=== PATIENT | female | born 1945 | race Caucasian/White ===

== ENCOUNTER 2018-02-22 18:12 | Inpatient (IN) | payer MEDICARE ==
[2018-02-22] MEDS ORDERED: LORazepam 2 MG/ML INJ IV STA (18:35)
[2018-02-22] MEDS ORDERED: RX INFO: IV CONTRAST WAS GIVEN 1 EACH MISC MISCELLANE PRN (18:43)
--- NOTE | 2018-02-22 18:47 | ED ---
General Adult HPI - General Chief complaint: Seizure Stated complaint: seizure Time Seen by Provider: 02/22/18 18:18 Source: patient, family, RN notes reviewed Mode of arrival: EMS Limitations: no limitations - History of Present Illness Initial comments: Patient is a pleasant 73-year-old female presenting to the emergency department following witnessed seizure. Patient has no history of seizures. Patient did feel somewhat shaky throughout the day. Patient was at a graduation republican. When she left patient did have generalized tonic-clonic activity lasting up to 1 -1/2 minutes. This was witnessed by her who is a physician university administrative assistant, retired. Patient was postictal and confused. Patient feels only slightly confused at this time and is near normal. No history of previous seizures. No chest pain. No palpitations. No dyspnea. - Related Data Allergies Allergy/AdvReac Type Severity Reaction Status Date / Time No Known Allergies Allergy Verified 02/22/18 18:56 Review of Systems ROS Statement: Those systems with pertinent positive or pertinent negative responses have been documented in the HPI. ROS Other: All systems not noted in ROS Statement are negative. Constitutional: Denies: fever Eyes: Denies: eye pain ENT: Denies: ear pain Respiratory: Denies: cough Cardiovascular: Denies: chest pain, palpitations Endocrine: Denies: fatigue Gastrointestinal: Denies: abdominal pain Genitourinary: Denies: dysuria Skin: Denies: rash Neurological: Denies: headache, weakness Past Medical History Past Medical History: Hypertension History of Any Multi-Drug Resistant Organisms: None Reported Past Surgical History: Back Surgery, Hernia Repair, Hysterectomy Past Psychological History: Anxiety Smoking Status: Former smoker Past Alcohol Use History: None Reported Past Drug Use History: None Reported General Exam Limitations: no limitations General appearance: alert, in no apparent distress Head exam: Present: atraumatic, normocephalic Eye exam: Present: normal appearance, PERRL, EOMI. Absent: nystagmus ENT exam: Present: normal oropharynx Neck exam: Present: normal inspection Respiratory exam: Present: normal lung sounds bilaterally Cardiovascular Exam: Present: regular rate, normal rhythm Expanded Peripheral pulses: 2+: Radial (R), Radial (L), Posterior Tibialis (R), Posterior Tibialis (L) GI/Abdominal exam: Present: soft. Absent: tenderness Extremities exam: Present: normal inspection. Absent: pedal edema, calf tenderness Neurological exam: Present: alert, oriented X3, CN II-XII intact. Absent: motor sensory deficit Expanded Neurological exam: Present: protecting the airway Patient oriented to: Present: person, place, time Speech: Present: fluid speech Cranial nerves: EOM's Intact: Normal, Facial Sensation: Normal Sensory exam: Upper Extremity Light Touch: Normal, Lower Extremity Light Touch: Normal Motor strength exam: RUE: 5, LUE: 5, RLE: 5, LLE: 5 Eye Response: (4) open spontaneously Motor Response: (6) obeys commands Verbal Response: (5) oriented Psychiatric exam: Present: normal affect, normal mood Skin exam: Present: normal color Course Vital Signs 02/22/18 02/22/18 18:20 19:52 Temperature 98.3 F Pulse Rate 100 91 Respiratory 18 16 Rate Blood Pressure 147/80 119/79 O2 Sat by Pulse 98 98 Oximetry EKG Findings - EKG Comments: EKG Findings:: Sinus rhythm and 97. SC 154. QRS 82. QT 350. QTC 444. Normal axis. Q wave in lead V2. There is some ST depression inferiorly. Medical Decision Making - Medical Decision Making Patient reevaluated and resting comfortably in bed. states patient is acting normal at this time. Patient and updated on results and plan. Patient will be admitted for neurology and cardiology evaluation. In addition there will be further cardiac testing. Case was discussed in detail with Dr. pritchard, who will admit for hospital call. - Lab Data Result diagrams: 02/22/18 18:30 02/22/18 18:30 Lab Results 02/22/18 02/22/18 02/22/18 Range/Units 18:30 18:30 18:30 WBC 5.0 (3.8-10.6) k/uL RBC 4.52 (3.80-5.40) m/uL Hgb 12.7 (11.4-16.0) gm/dL Hct 38.1 (34.0-46.0) % MCV 84.3 (80.0-100.0) fL MCH 28.0 (25.0-35.0) pg MCHC 33.3 (31.0-37.0) g/dL RDW 13.3 (11.5-15.5) % Plt Count 249 (150-450) k/uL Neutrophils % 61 % Lymphocytes % 28 % Monocytes % 6 % Eosinophils % 2 % Basophils % 1 % Neutrophils # 3.1 (1.3-7.7) k/uL Lymphocytes # 1.4 (1.0-4.8) k/uL Monocytes # 0.3 (0-1.0) k/uL Eosinophils # 0.1 (0-0.7) k/uL Basophils # 0.0 (0-0.2) k/uL PT (9.0-12.0) sec INR (<1.2) APTT (22.0-30.0) sec Sodium 132 L (137-145) mmol/L Potassium 3.5 (3.5-5.1) mmol/L Chloride 96 L (98-107) mmol/L Carbon Dioxide 22 (22-30) mmol/L Anion Gap 14 mmol/L BUN 6 L (7-17) mg/dL Creatinine 0.57 (0.52-1.04) mg/dL Est GFR (CKD-EPI)AfAm >90 (>60 ml/min/1.73 sqM) Est GFR (CKD-EPI)NonAf >90 (>60 ml/min/1.73 sqM) Glucose 135 H (74-99) mg/dL Calcium 8.9 (8.4-10.2) mg/dL Total Bilirubin 0.7 (0.2-1.3) mg/dL AST 22 (14-36) U/L ALT 22 (9-52) U/L Alkaline Phosphatase 135 H (38-126) U/L Total Creatine Kinase 65 (30-135) U/L CK-MB (CK-2) 1.9 (0.0-2.4) ng/mL CK-MB (CK-2) Rel Index 2.9 Troponin I 0.042 H* (0.000-0.034) ng/mL Total Protein 6.4 (6.3-8.2) g/dL Albumin 4.2 (3.5-5.0) g/dL 02/22/18 Range/Units 18:30 WBC (3.8-10.6) k/uL RBC (3.80-5.40) m/uL Hgb (11.4-16.0) gm/dL Hct (34.0-46.0) % MCV (80.0-100.0) fL MCH (25.0-35.0) pg MCHC (31.0-37.0) g/dL RDW (11.5-15.5) % Plt Count (150-450) k/uL Neutrophils % % Lymphocytes % % Monocytes % % Eosinophils % % Basophils % % Neutrophils # (1.3-7.7) k/uL Lymphocytes # (1.0-4.8) k/uL Monocytes # (0-1.0) k/uL Eosinophils # (0-0.7) k/uL Basophils # (0-0.2) k/uL PT 9.6 (9.0-12.0) sec INR 1.0 (<1.2) APTT 22.9 (22.0-30.0) sec Sodium (137-145) mmol/L Potassium (3.5-5.1) mmol/L Chloride (98-107) mmol/L Carbon Dioxide (22-30) mmol/L Anion Gap mmol/L BUN (7-17) mg/dL Creatinine (0.52-1.04) mg/dL Est GFR (CKD-EPI)AfAm (>60 ml/min/1.73 sqM) Est GFR (CKD-EPI)NonAf (>60 ml/min/1.73 sqM) Glucose (74-99) mg/dL Calcium (8.4-10.2) mg/dL Total Bilirubin (0.2-1.3) mg/dL AST (14-36) U/L ALT (9-52) U/L Alkaline Phosphatase (38-126) U/L Total Creatine Kinase (30-135) U/L CK-MB (CK-2) (0.0-2.4) ng/mL CK-MB (CK-2) Rel Index Troponin I (0.000-0.034) ng/mL Total Protein (6.3-8.2) g/dL Albumin (3.5-5.0) g/dL - Radiology Data Radiology results: report reviewed (Computed tomography scan of the brain and CTA of the brain reveals no acute process), image reviewed (Chest x-ray shows no acute process) Disposition Clinical Impression: New onset seizure Disposition: ADMITTED IP TO THIS [facility] Referrals: Nonstaff,Physician [Primary Care Provider] - 1-2 days Decision Time: 20:48
[2018-02-22 18:58] LABS: Basophils % (A) 1 %; Eosinophils # (A) 0.1 k/uL (0-0.7); Eosinophils % (A) 2 %; HCT 38.1 % (34.0-46.0); HGB 12.7 gm/dL (11.4-16.0); Lymphocytes # (A) 1.4 k/uL (1.0-4.8); Lymphocytes % (A) 28 %; MCHC 33.3 g/dL (31.0-37.0); MCV 84.3 fL (80.0-100.0); Mean Platelet Volume 7.4; Monocytes # (A) 0.3 k/uL (0-1.0); Monocytes % (A) 6 %; Neutrophils # (A) 3.1 k/uL (1.3-7.7); Neutrophils % (A) 61 %; Platelet Count 249 k/uL (150-450); RBC 4.52 m/uL (3.80-5.40); RDW 13.3 % (11.5-15.5)
[2018-02-22 19:11] LABS: ALT 22 U/L (9-52); AST 22 U/L (14-36); Albumin 4.2 g/dL (3.5-5.0); Alkaline Phosphatase 135 U/L (38-126); Anion Gap 14 mmol/L; Blood Urea Nitrogen 6 mg/dL (7-17); Calcium 8.9 mg/dL (8.4-10.2); Carbon Dioxide 22 mmol/L (22-30); Chloride 96 mmol/L (98-107); Glucose 135 mg/dL (74-99); Potassium 3.5 mmol/L (3.5-5.1); Sodium 132 mmol/L (137-145); Total Bilirubin 0.7 mg/dL (0.2-1.3); Total Protein 6.4 g/dL (6.3-8.2)
[2018-02-22 19:20] LABS: Partial Thromboplastin Time 22.9 sec (22.0-30.0); Prothrombin Time 9.6 sec (9.0-12.0)
[2018-02-22 19:23] LABS: Creatine Kinase MB 1.9 ng/mL (0.0-2.4)
[2018-02-22 19:25] LABS: Troponin I 0.042 ng/mL (0.000-0.034)
--- NOTE | 2018-02-22 19:58 | XR ---
EXAMINATION TYPE: XR chest 2V DATE OF EXAM: 02/22/2018 COMPARISON: NONE HISTORY: Seizure, asthma TECHNIQUE: Frontal and lateral views of the chest are obtained. FINDINGS: There is no focal air space opacity, pleural effusion, or pneumothorax seen. The cardiac silhouette size is within normal limits. Minimal strand-like basilar densities are present most typic al of subsegmental atelectasis. There are overlying cardiac leads. There may be spinal curvature. Pr ominent lung volume may be indicative of underlying COPD. The aorta is dense. The osseous structures are intact. IMPRESSION: Probable basilar atelectasis or scarring.
--- NOTE | 2018-02-22 20:18 | CT ---
EXAMINATION TYPE: CT brain wo con DATE OF EXAM: 02/22/2018 COMPARISON: NONE HISTORY: New onset seizure. CT DLP: 1125.81 mGycm Automated exposure control for dose reduction was used. Helical imaging through the brain FINDINGS: There is no hemorrhage or hydrocephalus. Cortical atrophy is present. Periventricular white matter sh ows low attenuation. Calvarium is intact. Paranasal sinuses and mastoid air cells as visualized are r emarkable for an air-fluid level within the sphenoid sinus on the left . IMPRESSION: NO ACUTE BRAIN ABNORMALITY. Consider sphenoid sinusitis.
--- NOTE | 2018-02-22 20:35 | CT ---
CT angiogram of the head history: New onset seizure Helical acquisition obtained through the brain during dynamic administration 100 cc Isovue intravenou sly. Three-dimensional reconstructions performed on an alternate workstation. Correlation to CT brain same date. DLP 1166.17 mGycentimeters, automatic exposure control utilized for dose reduction The vertebrobasilar system is patent. Internal carotid arteries are patent. There is no evident aneur ysm or dissection, no evident embolus. IMPRESSION: No significant abnormality evident within the [place].
[2018-02-22] MEDS ORDERED: NITROGLYCERIN SL TABS 0.4 MG TAB SUBLINGUAL PRN (20:49)
[2018-02-22] MEDS ORDERED: ASPIRIN 81 MG PO STA (20:49)
[2018-02-22] MEDS ORDERED: NALOXONE 0.4 MG/ML 1 ML VIAL IV PRN (20:49)
[2018-02-22] MEDS ORDERED: LORazepam 2 MG/ML INJ IV PRN (20:49)
[2018-02-22] MEDS: SODIUM CHLORIDE 0.9% 1,000 ML IV SCH (21:07)
[2018-02-22 21:42] LABS: Troponin I 1.65 ng/mL (0.000-0.034)
[2018-02-22 22:07] LABS: Glucose,Whole Blood 100 mg/dL (75-99)
[2018-02-22 22:35] VITALS: BMI 23.3
[2018-02-22] MEDS ORDERED: Potassium Replacement Protocol 1 EACH MISC MISCELLANE PRN (23:15)
[2018-02-22] MEDS ORDERED: Magnesium Replacement Protocol 1 EACH MISC MISCELLANE PRN (23:16)
[2018-02-23] MEDS: POTASSIUM CHLORIDE 10 MEQ in WATER FOR INJECTION 1 100ML.BAG IVPB SCH ×2 (00:04→01:35)
[2018-02-23] MEDS: ZOLPIDEM 10 MG TAB PO PRN ×2 (01:36→23:09)
[2018-02-23] MEDS: MAGNESIUM SULFATE-D5W PMX 1 GM in DEXTROSE/WATER 1 100ML.BAG IVPB SCH ×2 (02:30→03:01)
[2018-02-23 03:49] LABS: Anion Gap 10 mmol/L; Blood Urea Nitrogen 7 mg/dL (7-17); Calcium 9.2 mg/dL (8.4-10.2); Carbon Dioxide 25 mmol/L (22-30); Chloride 99 mmol/L (98-107); Cholesterol 203 mg/dL (<200); Glucose 100 mg/dL (74-99); HDL Cholesterol 65 mg/dL (40-60); LDL Cholesterol,Calculated 126 mg/dL (0-99); Magnesium 1.9 mg/dL (1.6-2.3); Potassium 4.4 mmol/L (3.5-5.1); Sodium 134 mmol/L (137-145); Triglycerides 62 mg/dL (<150)
[2018-02-23 04:24] LABS: Creatine Kinase MB 6.5 ng/mL (0.0-2.4); Troponin I 2.16 ng/mL (0.000-0.034)
--- NOTE | 2018-02-23 08:14 | P.CRDCN ---
History of Present Illness Consult date: 02/23/18 History of present illness: This is a 73-year-old female with history of hypertensive coronary vascular disease and mild hypercholesterolemia, apparently was at a republican yesterday. She was brought to the hospital after a witnessed seizure. EKG showed mild ST- T abnormalities in inferolateral leads. Her cardiac enzyme studies showed elevation of the troponin suggestive of non-STEMI. Patient never had any chest pain. Denies any shortness of breath, dizziness or syncope. She claimed that she had a cardiac catheterization in the past and was found to have normal coronary arteries. She also had a surgery for had hernia. She had some back surgery last year. She seemed to be comfortable at the time of my examination. No complaints of chest pain. Her blood pressures running low in the 100s. I' m going to start her on small dose of beta jarad. Will continue with aspirin. We'll also put her on lipid-lowering agent. We'll wait for the neurology input. If it is okay with them. We'll start her on IV heparin. An echocardiogram will be done. Most probably she will need cardiac catheterization to rule out underlying ischemic heart disease which will be planned for the next 24 hours. Review of Systems REVIEW OF SYSTEMS: CONSTITUTIONAL:. Patient is doing well. No complaints of fever or chills EYES: Denies diplopia, blurring of vision EARS, NOSE, MOUTH, THROAT: Denies headaches, denies sore throat. CARDIOVASCULAR: Denies chest pain, denies shortness of breath, denies palpitations RESPIRATORY: Denies shortness of breath, denies cough. GASTROINTESTINAL: Denies change in appetite, denies abdominal pain, denies diarrhea GENITOURINARY: Denies hematuria, denies infections. MUSKULOSKELETAL: Denies pain, denies swelling. Denies any cramps or claudication INTEGUMENTARY: Denies rash, denies eczema. NEUROLOGICAL: As per HPI PSYCHIATRIC: Denies anxiety, denies depression. HEMATOLOGIC/LYMPHATIC: Denies any bleeding, denies enlarged lymph nodes. Past Medical History Past Medical History: Hypertension History of Any Multi-Drug Resistant Organisms: None Reported Past Surgical History: Back Surgery, Hernia Repair, Hysterectomy Past Psychological History: Anxiety Smoking Status: Never smoker Past Alcohol Use History: None Reported Past Drug Use History: None Reported Medications and Allergies Allergies Allergy/AdvReac Type Severity Reaction Status Date / Time No Known Allergies Allergy Verified 02/22/18 18:56 Physical Exam Vitals: Vital Signs Temp Pulse Pulse Resp BP BP Pulse Ox 02/23/18 04:00 98.2 F 69 76 14 102/62 98 02/23/18 02:00 83 109/74 97 02/23/18 00:00 74 76 16 85/53 96 02/22/18 22:00 88 02/22/18 21:54 101 H 02/22/18 21:32 97.9 F 85 16 110/70 98 02/22/18 21:28 98 F 82 18 116/74 97 02/22/18 19:52 91 16 119/79 98 02/22/18 18:20 98.3 F 100 18 147/80 98 Intake and Output 02/22/18 02/23/18 02/23/18 22:59 06:59 14:59 Output Total 125 Balance -125 Output: Urine 125 Other: Voiding Method Bedside Commode # Voids 1 Weight 56 kg 56.2 kg GENERAL EXAM: Patient is alert and oriented and doesn't appear to be in any acute distress HEENT: Normocephalic. Normal reaction of pupils, equal size, normal range of extraocular motion. No erythema or exudates in the throat. NECK: No masses, no nuchal rigidity. CHEST: No chest wall deformity. LUNGS: Equal air entry with no crackles or wheeze. HEART: S1 and S2 normal with no audible mumurs or gallops. Regular rhythm, femorals equal on both sides.. ABDOMEN: No hepatosplenomegaly, normal bowel sounds, no guarding or rigidity. SKIN: No rashes CENTRAL NERVOUS SYSTEM: No focal deficits. EXTREMITIES: No cyanosis, clubbing or edema. Results 02/22/18 18:30 02/23/18 03:07 Cardiac Enzymes 02/22/18 02/22/18 02/22/18 Range/Units 18:30 18:30 21:00 AST 22 (14-36) U/L CK-MB (CK-2) 1.9 6.0 H* (0.0-2.4) ng/mL Troponin I 0.042 H* 1.650 H* (0.000-0.034) ng/mL 02/23/18 Range/Units 03:07 AST (14-36) U/L CK-MB (CK-2) 6.5 H* (0.0-2.4) ng/mL Troponin I 2.160 H* (0.000-0.034) ng/mL Coagulation 02/22/18 Range/Units 18:30 PT 9.6 (9.0-12.0) sec APTT 22.9 (22.0-30.0) sec Lipids 02/23/18 Range/Units 03:07 Triglycerides 62 (<150) mg/dL Cholesterol 203 H (<200) mg/dL HDL Cholesterol 65 H (40-60) mg/dL CBC 02/22/18 Range/Units 18:30 WBC 5.0 (3.8-10.6) k/uL RBC 4.52 (3.80-5.40) m/uL Hgb 12.7 (11.4-16.0) gm/dL Hct 38.1 (34.0-46.0) % Plt Count 249 (150-450) k/uL Comprehensive Metabolic Panel 02/22/18 02/23/18 Range/Units 18:30 03:07 Sodium 132 L 134 L (137-145) mmol/L Potassium 3.5 4.4 (3.5-5.1) mmol/L Chloride 96 L 99 (98-107) mmol/L Carbon Dioxide 22 25 (22-30) mmol/L BUN 6 L 7 (7-17) mg/dL Creatinine 0.57 0.60 (0.52-1.04) mg/dL Glucose 135 H 100 H (74-99) mg/dL Calcium 8.9 9.2 (8.4-10.2) mg/dL AST 22 (14-36) U/L ALT 22 (9-52) U/L Alkaline Phosphatase 135 H (38-126) U/L Total Protein 6.4 (6.3-8.2) g/dL Albumin 4.2 (3.5-5.0) g/dL Current Medications Generic Name Dose Route Start Last Admin Trade Name Freq PRN Reason Stop Dose Admin Aspirin 325 mg 02/23/18 09:00 Aspirin PO DAILY YAMILKA Sodium Chloride 1,000 mls @ 20 mls/hr 02/22/18 21:00 02/22/18 21:07 Saline 0.9% IV 20 mls/hr .Q24H YAMILKA Administration Lorazepam 0.5 mg 02/22/18 20:49 Ativan IV Q6HR PRN Anxiety Metoprolol Tartrate 12.5 mg 02/23/18 09:00 Lopressor PO BID YMAILKA Miscellaneous Information 1 each 02/22/18 18:43 02/22/18 18:59 Rx Info: Iv Contrast Was Given MISCELLANE 02/24/18 18:44 1 each DAILY PRN Administration Per Protocol Miscellaneous Information 1 each 02/22/18 23:16 Magnesium Per Protocol MISCELLANE DAILY PRN Per Protocol Protocol Miscellaneous Information 1 each 02/22/18 23:15 Potassium Per Protocol MISCELLANE DAILY PRN Per Protocol Protocol Naloxone HCl 0.2 mg 02/22/18 20:49 Narcan IV Q2M PRN Opioid Reversal Nitroglycerin 0.4 mg 02/22/18 20:49 Nitrostat SUBLINGUAL Q5M PRN Chest Pain Zolpidem Tartrate 10 mg 02/23/18 01:05 02/23/18 01:36 Ambien PO 10 mg HS PRN Administration Insomnia Intake and Output 02/22/18 02/23/18 02/23/18 22:59 06:59 14:59 Output Total 125 Balance -125 Output: Urine 125 Other: Voiding Method Bedside Commode # Voids 1 Weight 56 kg 56.2 kg 02/22/18 18:30 02/23/18 03:07 EKG Interpretations (text) Sinus rhythm with a diffuse ST-T changes inferolateral leads Assessment and Plan (1) Non-STEMI (non-ST elevated myocardial infarction) Current Visit: Yes Status: Acute Code(s): I21.4 - NON-ST ELEVATION (NSTEMI) MYOCARDIAL INFARCTION SNOMED Code(s): 713012848 (2) New onset seizure Current Visit: Yes Status: Acute Code(s): R56.9 - UNSPECIFIED CONVULSIONS SNOMED Code(s): 88554493 (3) Hypertension Current Visit: Yes Status: Acute Code(s): I10 - ESSENTIAL (PRIMARY) HYPERTENSION SNOMED Code(s): 88545570 Plan: EKG changes and cardiac enzyme studies are suggestive of, non-STEMI. Patient is asymptomatic. We'll get an echocardiogram. We'll continue with aspirin, beta jarad and lipid-lowering agent and if approved by neurology heparin. We' ll consider cardiac catheterization tomorrow.
[2018-02-23] MEDS: METOPROLOL TARTRATE 12.5 MG TAB PO SCH ×2 (09:30→21:17)
[2018-02-23] MEDS: ASPIRIN 325 MG TAB PO SCH (09:30)
[2018-02-23] MEDS: ATORVASTATIN 80 MG TAB PO SCH (09:31)
[2018-02-23] MEDS ORDERED: HEPARIN SODIUM,PORCINE 5,000 UNIT/ML 1 ML VIAL IV PRN (11:54)
[2018-02-23] MEDS ORDERED: HEPARIN SODIUM,PORCINE 5,000 UNIT/ML 1 ML VIAL IV ONE (12:15)
[2018-02-23 13:35] LABS: Basophils # (A) 0.1 k/uL (0-0.2); Basophils % (A) 1 %; Eosinophils % (A) 1 %; HCT 36.9 % (34.0-46.0); HGB 12.2 gm/dL (11.4-16.0); Lymphocytes # (A) 0.9 k/uL (1.0-4.8); Lymphocytes % (A) 16 %; MCH 28.1 pg (25.0-35.0); MCHC 33.1 g/dL (31.0-37.0); MCV 84.8 fL (80.0-100.0); Mean Platelet Volume 7.7; Monocytes # (A) 0.4 k/uL (0-1.0); Monocytes % (A) 6 %; Neutrophils # (A) 4.3 k/uL (1.3-7.7); Neutrophils % (A) 75 %; Platelet Count 229 k/uL (150-450); RBC 4.35 m/uL (3.80-5.40); RDW 13.6 % (11.5-15.5); WBC 5.8 k/uL (3.8-10.6)
[2018-02-23 13:45] LABS: Prothrombin Time 9.7 sec (9.0-12.0)
[2018-02-23] MEDS ORDERED: traMADol 50 MG TAB PO PRN (14:17)
[2018-02-23] MEDS: HEPARIN SODIUM,PORCINE/D5W PMX 25,000 UNIT in DEXTROSE/WATER 1 500ML.BAG IV SCH (14:30)
[2018-02-23] MEDS: GABAPENTIN 400 MG CAP PO SCH ×2 (16:41→21:17)
--- NOTE | 2018-02-23 18:51 | P.CNNES ---
History of Present Illness Consult date: 02/23/18 Requesting physician: Zach Rajan Reason for Consult: New onset seizure History of Present Illness: Patient is a pleasant 73-year-old female who is being evaluated by the neurology service today on 02/23/2018 per the request of Dr. Rajan for new onset seizure. Patient denies having history of seizure. Patient states she was not feeling well for approximately 2 days and did not say anything. She stated she went to a family graduation and when she left her noted that she had what was described as a tonic-clonic seizure in the car. Patient states her turned the car around and went back to the graduation constitution party and called 911. Reportedly this seizure lasted approximately 1-1/2 minutes. Patient states she believes she bit her lip during the seizure. She denies any loss of bowel or bladder control. 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 Patient did describe a postictal state. Patient has had no return of seizures since admission. Patient reports she was taking Ultram for back pain relief. Ultram can lower seizure threshold. Labs on admission were sodium 132, BUN 6, glucose 135, and elevated troponin of 0.042. Cardiology has been consulted. Lipid panel is elevated cardiology is starting her on low dose statin agent. Cardiology also is starting patient on low-dose beta jarad and low-dose aspirin. At the time of my evaluation, patient's resting comfortably in bed and appears to be in no acute distress. Review of Systems REVIEW OF SYSTEMS: Otherwise unremarkable and noncontributory. Past Medical History Past Medical History: Hypertension History of Any Multi-Drug Resistant Organisms: None Reported Past Surgical History: Back Surgery, Hernia Repair, Hysterectomy Past Psychological History: Anxiety Smoking Status: Never smoker Past Alcohol Use History: None Reported Past Drug Use History: None Reported Medications and Allergies Home Medications Medication Instructions Recorded Confirmed Type Albuterol Sulfate [Proair Hfa] 1 - 2 puff INHALATION RT-Q6H PRN 02/23/18 History Gabapentin [Neurontin] 800 mg PO TID 02/23/18 02/23/18 History LORazepam [Ativan] 1 mg PO BID 02/23/18 02/23/18 History Losartan Potassium [Cozaar] 100 mg PO DAILY 02/23/18 02/23/18 History Zolpidem [Ambien] 10 mg PO HS PRN 02/23/18 02/23/18 History traMADol HCL [Ultram] 50 mg PO TID PRN 02/23/18 02/23/18 History Allergies Allergy/AdvReac Type Severity Reaction Status Date / Time No Known Allergies Allergy Verified 02/23/18 12:14 Physical Examination - Vital Signs Vital Signs: Vital Signs Temp Pulse Pulse Resp BP BP Pulse Ox 02/23/18 08:00 97.7 F 86 76 18 123/72 100 02/23/18 04:00 98.2 F 69 76 14 102/62 98 02/23/18 02:00 83 109/74 97 02/23/18 00:00 74 76 16 85/53 96 02/22/18 22:00 88 02/22/18 21:54 101 H 02/22/18 21:32 97.9 F 85 16 110/70 98 02/22/18 21:28 98 F 82 18 116/74 97 02/22/18 19:52 91 16 119/79 98 Intake and Output 02/23/18 02/23/18 02/23/18 06:59 14:59 22:59 Intake Total 400 Output Total 125 Balance -125 400 Intake: IV 160 Sodium Chloride 0.9% 1, 160 000 ml @ 20 mls/hr IV . Q24H [facility] Rx#:[id number] Oral 240 Output: Urine 125 Other: Voiding Method Bedside Commode Bedside Commode # Voids 1 1 # Bowel Movements 1 Weight 56.2 kg PHYSICAL EXAM: GENERAL APPEARANCE: Patient is a well-developed, female who appears to be in no acute distress. HEENT: Normocephalic, atraumatic, no facial asymmetry is seen. Neck is supple with no masses felt. CARDIOVASCULAR: Regular rate and rhythm. ABDOMEN: Nontender, nondistended. EXTREMITIES: Show no edema or clubbing. NEUROLOGICAL EXAM: Patient is awake, alert, and oriented 3. Speech and language are normal. Strength is full in all 4 extremities. Sensory exam to light touch is normal in all 4 extremities. No facial asymmetry is seen on cranial nerve testing. No tremors or seizure-like activity noted. Results - Laboratory Findings CBC and BMP: 02/23/18 13:15 02/23/18 03:07 Abnormal Lab Findings: Abnormal Labs 02/22/18 02/22/18 02/22/18 18:30 18:30 21:00 Lymphocytes # Sodium 132 L Chloride 96 L BUN 6 L Glucose 135 H POC Glucose (mg/dL) Alkaline Phosphatase 135 H Total Creatine Kinase CK-MB (CK-2) 6.0 H* Troponin I 0.042 H* 1.650 H* Cholesterol LDL Cholesterol, Calc HDL Cholesterol 02/22/18 02/23/18 02/23/18 22:05 03:07 03:07 Lymphocytes # Sodium 134 L Chloride BUN Glucose 100 H POC Glucose (mg/dL) 100 H Alkaline Phosphatase Total Creatine Kinase 175 H CK-MB (CK-2) 6.5 H* Troponin I 2.160 H* Cholesterol 203 H LDL Cholesterol, Calc 126 H HDL Cholesterol 65 H 02/23/18 13:15 Lymphocytes # 0.9 L Sodium Chloride BUN Glucose POC Glucose (mg/dL) Alkaline Phosphatase Total Creatine Kinase CK-MB (CK-2) Troponin I Cholesterol LDL Cholesterol, Calc HDL Cholesterol Assessment and Plan Plan: Impression: 1. New-onset seizure 2. Elevated troponin, non-STEMI 3. Hypertension 4. Anxiety 5. Lumbago Recommendation: Patient denies any history of seizure activity. Patient states this is the first seizure she has ever experienced. Seizure may be related to Ultram use which she was using for chronic back pain. Ultram can lower seizure threshold. I will discontinue the Ultram. Due to new onset seizure, I will order an MRI of the brain with and without contrast to evaluate for possible contributing etiology. I will order an EEG. At this point, I do not feel it necessary to start patient on antiepileptic medication. Continue neurological checks. Continue workup per cardiology. Ativan per seizure protocol. I will continue to follow with you. Further recommendations to follow. Thank you for allowing me to participate in the care of your patient. Feel free to call with any questions or concerns. I performed an examination of the patient and discussed the management with the LOAN COLLECTOR. I have reviewed the LOAN COLLECTOR notes and agree with the findings and plan of care.
--- NOTE | 2018-02-23 19:14 | HP ---
HISTORY AND PHYSICAL DATE OF ADMISSION: 02/23/18 DATE OF SERVICE: 02/23/18 PRESENTING COMPLAINT: Seizures. HISTORY OF PRESENTING COMPLAINT: A very pleasant 73-year-old patient follows with Dr. Dean chronic stable medical conditions include hypertension, anxiety, chronic low back pain. For the last couple days, patient has not been feeling well. The patient went over to her sister in laws with her , was feeling a bit shaky and jumpy. Next thing she remembers she was being told that her is taking her back to her house. is a physician food and nutrition services assistant. On the way home apparently the patient is having seizure-like activity. He brought her back to her sister's house. The patient was then describe to have a tonic- clonic seizure. The patient did bite her lips. The patient is brought to the ER. The patient did get Ativan in the ER. The patient initial troponin was 0.04, 0.042 and then it went up to 1.6 and 2.1. EKG showed some ST-segment depression in inferolateral leads. The patient is started on IV heparin. The patient's CT scan of the brain unremarkable. The patient denies any chest pain or shortness of breath. The patient is rather talkative and chatty during the interview. The patient denies use any new drugs or head injury. REVIEW OF SYSTEMS: Constitutional tired. HEENT none. Respiratory none. Cardiovascular none. Gastrointestinal none. Genitourinary: None. Musculoskeletal: Aches and pains in different joints including lower back. Dermatological, hematologic, lymphatic none. Psychiatry anxiety. Neurological does not sleep well. PAST MEDICAL HISTORY: Hypertension, anxiety, chronic constipation, 1 or 2 bowel movements a day, chronic low back pain. PAST SURGICAL HISTORY: Back surgery, hernia repair, hysterectomy. SOCIAL HISTORY: Does not smoke. Stopped drinking alcohol 30 years ago. . FAMILY HISTORY: Reviewed, noncontributory to presentation. HOME MEDICATIONS: 1. Ultram 50 mg p.o. t.i.d. p.r.n. 2. Ambien 10 mg q.h.s. p.r.n. 3. Cozaar 100 mg p.o. daily. 4. Ativan 1 mg p.o. b.i.d. 5. Neurontin 800 mg t.i.d. 6. ProAir 1-2 puffs q.6h p.r.n. ALLERGIES: None. PHYSICAL EXAMINATION: Temperature 97.7, pulse 96, respiration 18, blood pressure 123/72, pulse ox 100% on 2 L. GENERAL APPEARANCE: Thin build, sitting up, comfortable. EYES: Pupils are equal. Conjunctivae normal. HEENT: External appearance of nose and ears normal. Oral cavity normal. Neck JVD not raised. Mass not palpable. Respiratory effort normal. Lungs fair entry. Cardiovascular 1st and 2nd sounds normal. No edema. ABDOMEN: Soft, nontender. Liver and spleen not palpable. Lymphatics: No lymph nodes palpable in the neck and axilla. Psychiatry alert and oriented x3. Mood is slightly anxious-appearing. Neurological: Pupils equal. Cranial nerves grossly intact. Power and sensation grossly intact. MUSCULOSKELETAL: Evidence of osteoarthritis especially in the hands and knees. INVESTIGATIONS: White count 5, hemoglobin 12.7, potassium 3.5, BUN 6, creatinine 0.57, troponin 0.04, 1.6 and 2.1. LDL 126. EKG shows ST-segment depression in inferolateral leads. CT scan of the brain is negative. Head CT unremarkable. ASSESSMENT: 1. Acute non-Q-wave myocardial infarction with a rather unique presentation. 2. New onset generalized tonic-clonic epilepsy with no prior history of the same. 3. Chronic low back pain. 4. Essential hypertension. 5. Anxiety disorder, otherwise specified. 6. Chronic constipation as a baseline. 1-2 bowel movements a day. PLAN: Neurology and Cardiology was consulted. The patient is put on aspirin, IV heparin, Cozaar, Lopressor. Seizure precautions will be done. The patient will need a cardiac catheterization. We will also add Lipitor. Care was discussed with the patient. MMODL / IJN: [id number] /
[2018-02-23] MEDS: SODIUM CHLORIDE 0.9% 1,000 ML IV SCH (21:17)
[2018-02-23] MEDS: LORazepam 1 MG TAB PO SCH (21:17)
[2018-02-24] MEDS: LOSARTAN 50 MG TAB PO SCH (06:36)
[2018-02-24] MEDS: GABAPENTIN 400 MG CAP PO SCH ×3 (06:36→20:50)
[2018-02-24] MEDS: ATORVASTATIN 80 MG TAB PO SCH (06:36)
[2018-02-24] MEDS: METOPROLOL TARTRATE 12.5 MG TAB PO SCH ×2 (06:37→20:50)
[2018-02-24 06:38] LABS: Basophils # (A) 0.1 k/uL (0-0.2); Basophils % (A) 1 %; Eosinophils # (A) 0.2 k/uL (0-0.7); Eosinophils % (A) 4 %; HCT 38.7 % (34.0-46.0); HGB 12.7 gm/dL (11.4-16.0); Lymphocytes # (A) 1.9 k/uL (1.0-4.8); Lymphocytes % (A) 39 %; MCH 27.9 pg (25.0-35.0); MCHC 32.8 g/dL (31.0-37.0); MCV 85.1 fL (80.0-100.0); Mean Platelet Volume 7.6; Monocytes # (A) 0.4 k/uL (0-1.0); Monocytes % (A) 9 %; Neutrophils # (A) 2.2 k/uL (1.3-7.7); Neutrophils % (A) 45 %; Platelet Count 261 k/uL (150-450); RBC 4.54 m/uL (3.80-5.40); RDW 13.6 % (11.5-15.5); WBC 4.9 k/uL (3.8-10.6)
[2018-02-24] MEDS: ASPIRIN 325 MG TAB PO SCH (06:39)
[2018-02-24] MEDS: LORazepam 1 MG TAB PO SCH ×2 (09:09→20:50)
[2018-02-24] MEDS ORDERED: LIDOCAINE 2% INJ 20 MG/ML (20 ML MDV) ONE (09:18)
[2018-02-24] MEDS ORDERED: fentaNYL (PF) 50 MCG/ML 2 ML AMP ONE (09:28)
[2018-02-24] MEDS ORDERED: IV FLUID CONTINUATION 1,000 ML IV ONE (09:41)
[2018-02-24] MEDS ORDERED: MIDAZOLAM 2 MG/2 ML VIAL ONE (09:44)
[2018-02-24] MEDS ORDERED: fentaNYL (PF) 50 MCG/ML 2 ML AMP IVP ONE (09:48)
[2018-02-24] MEDS ORDERED: MIDAZOLAM 2 MG/2 ML VIAL IVP ONE (09:48)
[2018-02-24] MEDS ORDERED: LIDOCAINE 2% INJ 20 MG/ML SQ ONE (09:51)
[2018-02-24] MEDS ORDERED: IOPAMIDOL-370 125ML BTL INJ ONE (10:07)
[2018-02-24] MEDS ORDERED: RX INFO: IV CONTRAST WAS GIVEN 1 EACH MISC MISCELLANE PRN (10:15)
--- NOTE | 2018-02-24 10:25 | P.PCN ---
Date of Procedure: 02/24/18 Preoperative Diagnosis: Non-STEMI Postoperative Diagnosis: Apical ballooning syndrome Procedure(s) Performed: Left heart catheterization With the left ventriculography Description of Procedure: HISTORY: This is a 73-year-old female who was admitted to the hospital following a seizure episode which was witnessed. She was found to have abnormal troponin values consistent with a non-STEMI. Echo Cardigan showed hypokinesis of the mid and apical anterior wall, mid and apical septum and also apical lateral wall. She is advised to have a cardiac catheterization to rule out any underlying ischemic heart disease. CONSENT:I have discussed the risks, benefits and alternative therapies for the above-mentioned procedure and for both sedation/analgesia as well as necessary blood product administration, if indicated, as they pertain to this patient. The patient has indicated understanding and acceptance of the risks and procedures discussed. PROCEDURE: Patient was brought to the lab in a fasting state. Patient was given some IV sedation. The right groin is infiltrated with lidocaine and right femoral artery was entered using Seldinger technique. A 6-[place] catheter was left in place and selective coronary arteriography and left ventriculography was performed. Patient tolerated the procedure well. Femoral angiogram was performed and Angio-Seal was applied for hemostasis. No immediate complications were noted and patient was transferred to [facility] in a stable condition Conscious Sedation: Versed 0.5mg Fentanyl 25 g Duration 19minutes HEMODYNAMICS: The aortic pressure is about 100/60. Left ankle end-diastolic pressure is 16. There is a 5 mm gradient across the aortic valve. SELECTIVE CORONARY ARTERIOGRAPHY: LEFT MAIN: Normal length and patent THE LEFT ANTERIOR DESCENDING CORONARY ARTERY: This is a good caliber vessel and tortuous in its course, use ice to good-sized diagonal branch which is also tortuous. The LAD and its branches are free of occlusive disease. THE LEFT CIRCUMFLEX AND IS CORONARY ARTERY: This is also moderate to good caliber vessel, tortuous in schools. Gives rise to good- sized first OM branch. The circumflex and branches are free of occlusive disease THE RIGHT CORONARY ARTERY: This is a codominant vessel giving rise to PDA and PLV. This moderate to large in caliber. There is a mild plaque in the mid RCA. Otherwise free of any occlusive disease LEFT VENTRICULOGRAPHY: This revealed normal-sized cardiac silhouette with hypokinesis of the mid to apical anterior wall. 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 PLAN: Maximum medical therapy and risk factor modification PROGNOSIS: Fair
--- NOTE | 2018-02-24 13:49 | ECHOF ---
Referral Reason:elevated trops MEASUREMENTS -------- HEIGHT: 154.9 cm WEIGHT: 55.3 kg BP: IVSd: 1.3 cm (0.6 - 1.1) LVIDd: 3.3 cm (3.9 - 5.3) LVPWd: 1.3 cm (0.6 - 1.1) IVSs: 1.5 cm LVIDs: 2.5 cm LVPWs: 1.2 cm LAESV Index (A-L): 31.19 ml/m Ao Diam: 2.9 cm (2.0 - 3.7) AV Cusp: 1.5 cm (1.5 - 2.6) LA Diam: 3.6 cm (2.7 - 3.8) MV EXCURSION: 11.236 mm (> 18.000) MV EF SLOPE: 93 mm/s (70 - 150) EPSS: 0.4 cm MV E Michael: 0.67 m/s MV DecT: 203 ms MV A Michael: 0.59 m/s MV E/A Ratio: 1.15 RAP: 5.00 mmHg RVSP: 44.08 mmHg FINDINGS -------- Sinus rhythm. This was a technically adequate study. The left ventricular size is normal. There is mild concentric left ventricular hypertrophy. Overa ll left ventricular systolic function is mild-moderately impaired with, an EF between 40 - 45 %. An terseptal Hypokinesis Lateral hypokinesis Septal Hypokinesis [place] Hypokinesis. The right ventricle is normal in size. The left atrial size is normal. LA is midly dilated 29-33ml/m2. The right atrial size is normal. There is mild aortic valve sclerosis. There is no evidence of aortic regurgitation. Mild mitral annular calcification present. Mild mitral regurgitation is present. Mild tricuspid regurgitation present. There is mild pulmonary hypertension. The right ventricular systolic pressure, as measured by Doppler, is 44.08mmHg. There is no pulmonic regurgitation present. The aortic root size is normal. There is no pericardial effusion. CONCLUSIONS -------- 1. The left ventricular size is normal. 2. There is mild concentric left ventricular hypertrophy. 3. Overall left ventricular systolic function is mild-moderately impaired with, an EF between 40 - 45 %. 4. Anterseptal Hypokinesis 5. Lateral hypokinesis 6. Septal Hypokinesis 7. [place] Hypokinesis. 8. The right ventricle is normal in size. 9. The left atrial size is normal. 10. LA is midly dilated 29-33ml/m2. 11. The right atrial size is normal. 12. There is mild aortic valve sclerosis. 13. Mild mitral annular calcification present. 14. Mild mitral regurgitation is present. 15. Mild tricuspid regurgitation present. 16. There is mild pulmonary hypertension. 17. The right ventricular systolic pressure, as measured by Doppler, is 44.08mmHg. 18. There is no pulmonic regurgitation present. 19. The aortic root size is normal. 20. There is no pericardial effusion. CARPET JOURNEYMAN: Elodia Pino RDCS
[2018-02-24 15:00] VITALS: RESP 18
--- NOTE | 2018-02-24 16:02 | P.PN ---
Subjective Progress Note Date: 02/24/18 Patient is a pleasant 73-year-old female who is being followed by the neurology service for new onset seizure. Patient denies having history of seizure. Patient had a tonic-clonic seizure witnessed by her who is a retired PA. Patient was brought to [facility] for further evaluation. No further seizures reported since admission. Ultram has been discontinued due to possibility of lowering seizure threshold. Patient was noted to have elevated troponins and cardiology was consulted. Patient did undergo cardiac cath today in medical management is recommended. Patient had computed tomography scan of the brain which showed no acute intracranial process. Patient had an EEG done and results are pending. Patient is scheduled to have an MRI of the brain due to new onset seizure. At the time of my evaluation, patient is resting comfortably in bed and is just finishing with EEG. Patient does not appear to be in any acute distress. Objective - Vital Signs Vital signs: Vital Signs Temp 98.6 F 02/24/18 08:12 Pulse 73 02/24/18 14:30 Resp 18 02/24/18 14:30 BP 96/62 02/24/18 14:30 Pulse Ox 97 02/24/18 14:30 Intake & Output 02/23/18 02/24/18 02/24/18 18:59 06:59 18:59 Intake Total 480 461.971 924 Output Total 300 Balance 480 461.971 624 Weight 55.7 kg Intake: IV 240 688 0.9 NS @ 56mls/hr 448 Sodium Chloride 0.9% 1, 240 160 000 ml @ 20 mls/hr IV . Q24H YAMILKA Rx#:[id number] Intake, IV Titration 221.971 Amount Heparin Sodium,Porcine/ 221.971 D5w Pmx 25,000 unit In Dextrose/Water 1 500ml. bag @ 12 UNITS/KG/HR 13. 48 mls/hr IV .Q24H YAMILKA Rx #:[id number] Oral 240 240 236 Output: Urine 300 Other: Voiding Method Bedside Commode Bedside Commode Bedpan # Voids 1 0 0 # Bowel Movements 1 - Exam PHYSICAL EXAM: GENERAL APPEARANCE: Patient is a well-developed, female who appears to be in no acute distress. HEENT: Normocephalic, atraumatic, no facial asymmetry is seen. Neck is supple with no masses felt. CARDIOVASCULAR: Regular rate and rhythm. ABDOMEN: Nontender, nondistended. EXTREMITIES: Show no edema or clubbing. NEUROLOGICAL EXAM: Patient is awake, alert, and oriented 3. Speech and language are normal. Strength is full in all 4 extremities. Sensory exam is normal to light touch in all 4 extremities. No facial asymmetry is seen on cranial nerve testing. No tremors or seizure-like activity. - Labs CBC & Chem 7: 02/24/18 06:24 02/23/18 03:07 Labs: Abnormal Lab Results - Last 24 Hours (Table) 02/23/18 02/24/18 Range/Units 19:42 06:28 APTT 46.2 H 42.8 H (22.0-30.0) sec Assessment and Plan Plan: Impression: 1. New-onset seizure 2. Elevated troponin, non-STEMI 3. Hypertension 4. Anxiety 5. Lumbago Recommendation: Patient denies any history of seizure activity. Patient states this is the first seizure she has ever experienced. Seizure may be related to Ultram use which she was using for chronic back pain. Ultram can lower seizure threshold. I will discontinue the Ultram. Due to new onset seizure, I will order an MRI of the brain with and without contrast to evaluate for possible contributing etiology. EEG was done and results are pending. At this point, I do not feel it necessary to start patient on antiepileptic medication. Any further seizures we will revisit antiepileptic medication. Continue neurological checks. Ativan per seizure protocol. I will continue to follow with you. Further recommendations to follow. I performed an examination of the patient and discussed the management with the SAFETY SPEC. I have reviewed the SAFETY SPEC notes and agree with the findings and plan of care.
--- NOTE | 2018-02-24 16:51 | EEG ---
ELECTROENCEPHALOGRAM REPORT DATE OF SERVICE: 02/24/2018 REASON FOR TESTING: Seizure. CURRENT ANTIEPILEPTIC MEDICATIONS: Neurontin. DESCRIPTION OF THE PROCEDURE: This EEG was performed using a 21-channel digital electroencephalograph, following international 10-20 system. DESCRIPTION OF THE RECORDING: From the beginning of the tracing, and with the patient's eyes closed, the background rhythm was mostly consisting of 10 Hz alpha frequency in the posterior occipital leads. No obvious asymmetry is seen. Occasional lead and muscle artifacts are seen. Photic stimulation was performed with a minimal driving response seen. No pathological waves were elicited. Hyperventilation was not performed. The patient does reach stage II of sleep during the tracing and occasional sleep spindles are seen. No epileptiform discharges were seen. Her EKG lead showed a regular rate and rhythm. INTERPRETATION: This asleep and awake EEG can be considered within normal limits. There was no asymmetry seen. No epileptiform discharges were noticed. The absence of epileptiform discharges does not rule out the diagnosis of epilepsy; therefore clinical correlation is recommended. MMEMY / IJN: [id number] /
--- NOTE | 2018-02-24 17:18 | MR ---
EXAMINATION TYPE: MR brain wo/w con DATE OF EXAM: 02/24/2018 COMPARISON: NONE HISTORY: New onset seizure TECHNIQUE: Multiplanar, multisequence images of the brain and brainstem is performed without and with IV contras t, utilizing 5.5 mL intravenous Gadavist . FINDINGS: There is mild cerebral cortical atrophy. There is no mass effect nor midline shift. There i s no sign of intracranial hemorrhage. There are numerous foci of increased signal in the periventricu lar white matter on the T2 and FLAIR images. Total number is more than 25 and these measure up to 8 m m. There is also patchy increased signal similarly within the geo that measures 16 mm. Sella turcica is normal. Orbits appear symmetric. There is no evidence of cortical infarct. There is normal contrast enhancement of the venous sinuses. There is no pathologic enhancement. CONCLUSION: Numerous white matter lesions as above including also a moderately large area in the central geo. Th is probably relates to demyelinating disease. Chronic small vessel ischemia is possible. Cerebral atr ophy. No evidence of cortical infarct.
[2018-02-24] MEDS: HEPARIN SODIUM,PORCINE/D5W PMX 25,000 UNIT in DEXTROSE/WATER 1 500ML.BAG IV SCH (18:43)
[2018-02-24] MEDS: SODIUM CHLORIDE 0.9% 1,000 ML IV SCH ×2 (18:43→20:52)
--- NOTE | 2018-02-25 00:21 | PN ---
PROGRESS NOTE DATE OF SERVICE: 02/24/2018 PRESENT COMPLAINT: Seizures. INTERVAL HISTORY: This patient presented with new onset seizures and also had an acute [place]. Did have a cardiac cath today that showed normal coronaries noted on the full report. The patient is resting better after the procedure. at the bedside. No further episodes of seizures. REVIEW OF SYSTEMS: Done for constitutional, cardiovascular, GI, pulmonary; relevant findings as above. CURRENT MEDICATIONS: Reviewed. PHYSICAL EXAMINATION: Temperature afebrile, pulse 62, respiratory 18, blood pressure 104/61, pulse ox 95% on room air. GENERAL APPEARANCE: Lying in bed, comfortable, smiling. EYES: Pupils are equal. Conjunctivae normal. HEENT: External appearance of nose and ears normal. Oral cavity normal. NECK: JVD not raised. Mass not palpable. Respiratory effort normal. Lungs are clear. CARDIOVASCULAR: First and second sounds normal, no edema. ABDOMEN: Soft and nontender. Liver and spleen not palpable. PSYCHIATRY: Alert and oriented x3. Mood and affect is normal. INVESTIGATIONS: LDL 126. ASSESSMENT: 1. Acute non-Q-wave myocardial infarction with negative cardiac catheterization. 2. New onset generalized tonic-clonic epilepsy with no prior history of the same. 3. Chronic low back pain probably from osteoarthritis. 4. Essential hypertension. 5. Anxiety disorder, not otherwise specified. 6. Chronic constipation as a baseline, idiopathic. PLAN: Patient awaiting EEG and MRI. Care was discussed in detail with the patient and . Several questions were answered. Did tell them that Ultram does increase the risk of seizures and the patient had taken some extra pills that day because she had to go to a family get-together. Will follow with Neurology. MMODL / IJN: [id number] /
[2018-02-25] MEDS: ZOLPIDEM 10 MG TAB PO PRN (00:28)
[2018-02-25 06:44] LABS: Basophils # (A) 0.1 k/uL (0-0.2); Basophils % (A) 1 %; Eosinophils # (A) 0.1 k/uL (0-0.7); Eosinophils % (A) 2 %; HCT 34.5 % (34.0-46.0); HGB 11.3 gm/dL (11.4-16.0); Lymphocytes # (A) 1.7 k/uL (1.0-4.8); Lymphocytes % (A) 30 %; MCH 27.8 pg (25.0-35.0); MCHC 32.9 g/dL (31.0-37.0); MCV 84.6 fL (80.0-100.0); Mean Platelet Volume 7.8; Monocytes # (A) 0.4 k/uL (0-1.0); Monocytes % (A) 7 %; Neutrophils # (A) 3.2 k/uL (1.3-7.7); Neutrophils % (A) 57 %; Platelet Count 235 k/uL (150-450); RBC 4.08 m/uL (3.80-5.40); RDW 13.7 % (11.5-15.5); WBC 5.5 k/uL (3.8-10.6)
[2018-02-25 07:07] LABS: Anion Gap 9 mmol/L; Blood Urea Nitrogen 7 mg/dL (7-17); Calcium 8.8 mg/dL (8.4-10.2); Carbon Dioxide 24 mmol/L (22-30); Chloride 101 mmol/L (98-107); Glucose 87 mg/dL (74-99); Potassium 3.7 mmol/L (3.5-5.1); Sodium 134 mmol/L (137-145)
[2018-02-25 09:07] VITALS: BP 139/79; PULSE 88; TEMP 98.8
[2018-02-25] MEDS: GABAPENTIN 400 MG CAP PO SCH (09:07)
[2018-02-25] MEDS: ATORVASTATIN 80 MG TAB PO SCH (09:07)
[2018-02-25] MEDS: ASPIRIN 325 MG TAB PO SCH (09:07)
[2018-02-25] MEDS: METOPROLOL TARTRATE 12.5 MG TAB PO SCH (09:08)
[2018-02-25] MEDS: LOSARTAN 50 MG TAB PO SCH (09:08)
[2018-02-25] MEDS: LORazepam 1 MG TAB PO SCH (09:08)
[2018-02-25] MEDS ORDERED: SPIRONOLACTONE 25 MG TAB PO SCH (14:45)
--- NOTE | 2018-02-25 15:16 | P.PN ---
Subjective Progress Note Date: 02/25/18 This is a 73-year-old female with history of hypertensive coronary vascular disease and mild hypercholesterolemia, apparently was at a constitution party yesterday. She was brought to the hospital after a witnessed seizure. EKG showed mild ST- T abnormalities in inferolateral leads. Her cardiac enzyme studies showed elevation of the troponin suggestive of non-STEMI. Patient never had any chest pain. Denies any shortness of breath, dizziness or syncope. She claimed that she had a cardiac catheterization in the past and was found to have normal coronary arteries. She also had a surgery for had hernia. She had some back surgery last year. She seemed to be comfortable at the time of my examination. No complaints of chest pain. Her blood pressures running low in the 100s. I' m going to start her on small dose of beta jarad. Will continue with aspirin. We'll also put her on lipid-lowering agent. We'll wait for the neurology input. If it is okay with them. We'll start her on IV heparin. An echocardiogram will be done. Most probably she will need cardiac catheterization to rule out underlying ischemic heart disease which will be planned for the next 24 hours. 02/25/2018 Patient underwent a cardiac catheterization yesterday which did not reveal any obstructive coronary artery disease, cardiomyopathy suggestive of stress cardiomyopathy. She was seen and examined today, denied any chest pain, no difficulty in breathing. Hemodynamically she is stable. Objective - Vital Signs Vital signs: Vital Signs Temp 98.8 F 02/25/18 09:04 Pulse 88 02/25/18 09:04 Resp 18 02/25/18 09:04 BP 139/79 02/25/18 09:04 Pulse Ox 98 02/25/18 09:04 Intake & Output 02/24/18 02/25/18 02/25/18 18:59 06:59 18:59 Intake Total 1299 375 118 Output Total 300 Balance 999 375 118 Weight 55.9 kg Intake: IV 1063 0.9 NS @ 56mls/hr 823 Sodium Chloride 0.9% 1, 160 000 ml @ 20 mls/hr IV . Q24H YAMILKA Rx#:[id number] Intake, IV Titration 375 Amount Sodium Chloride 0.9% 1, 375 000 ml @ 75 mls/hr IV . [id number] YAMILKA Rx#:[id number] Oral 236 118 Output: Urine 300 Other: Voiding Method Bedpan Bedpan Toilet # Voids 0 1 - Exam PHYSICAL EXAMINATION: HEENT: Head is atraumatic, normocephalic. Pupils equal, round. Neck is supple. There is no elevated jugular venous pressure. HEART EXAMINATION: Heart S1, S2 normal. No murmur or gallop heard. CHEST EXAMINATION: Lungs are clear to auscultation and precussion. No chest wall tenderness is noted on palpation or with deep breathing. ABDOMEN: Soft, nontender. Bowel sounds are heard. No organomegaly noted. Right groin soft, no hematoma, small amount of ecchymosis. EXTREMITIES: 2+ peripheral pulses with no evidence of peripheral edema and no calf tenderness noted. NEUROLOGIC patient is awake, alert and oriented -3. . - Labs CBC & Chem 7: 02/25/18 06:15 02/25/18 06:15 Labs: Abnormal Lab Results - Last 24 Hours (Table) 02/25/18 02/25/18 Range/Units 06:15 06:15 Hgb 11.3 L (11.4-16.0) gm/dL Sodium 134 L (137-145) mmol/L Assessment and Plan Plan: Assessment and plan #1 stress cardiomyopathy #2 new onset tonic-clonic seizures, possibly secondary to medication #3 hypertension #4 anxiety disorder plan From cardiology's perspective patient may be able to be discharged home today. We will make her a follow-up appointment to see Dr. Zurita in the office post discharge. She will continue on Lipitor 80 mg daily, losartan 100 mg daily , metoprolol 12-1/2 twice a day, and Aldactone 25 mg daily. DNP note has been reviewed, I agree with a documented findings and plan of care. Patient was seen and examined.
--- NOTE | 2018-02-26 06:46 | DS ---
DISCHARGE SUMMARY DATE OF ADMISSION: 02/23/2018 DATE OF DISCHARGE: 02/25/2018 FINAL DIAGNOSES: 1. Acute non-Q-wave myocardial infarction with negative cardiac catheterization/Takotsubo syndrome. 2. New onset generalized tonic-clonic epilepsy. 3. Chronic low back pain, probably from osteoarthritis. 4. Essential hypertension. 5. Anxiety disorder, not otherwise specified. 6. Chronic constipation, idiopathic. HOSPITAL COURSE: This patient presented with new onset tonic-clonic seizures, also ruled in for [place]. Cardiac catheterization was unremarkable. The patient did undergo a head CTA that was unremarkable. A 2-D echocardiogram showed an EF of 40% to 45%. MRI of the brain showed white matter lesions including one in the central geo. There is no evidence of cortical infarct. EEG did not show any seizure activity. Today care was discussed with the patient's . Questions were answered. CONSULTATION: Dr. Zurita from Cardiology, Dr. Mccollum from Neurology. The patient was cleared from specialists to be discharged. DISCHARGE MEDICATIONS: 1. ProAir 1 to 2 puffs q.6 p.r.n. 2. Neurontin 800 mg p.o. t.i.d. 3. Ativan 1 mg p.o. b.i.d. 4. Cozaar 100 mg p.o. daily. 5. Ambien 10 mg p.o. at bedtime p.r.n. 6. Aspirin 81 mg p.o. daily. 7. Lipitor 80 mg p.o. daily. 8. Lopressor 12.5 p.o. b.i.d. 9. Naproxen 250 mg p.o. b.i.d. p.r.n. 10.Aldactone 25 mg p.o. daily. 11.Discontinue Ultram. Follow up with Dr. Mccollum in 1 week. Follow up with Dr. Zurita in 1 week. Follow up with a family doctor in 1 week. The patient was informed not to drive until further notice, until further evaluation by neurologist. ON EXAM: Lungs are clear. CARDIOVASCULAR: First and second sounds normal. PSYCH: A and O x3. MMODL / IJN: [id number] /
--- NOTE | 2018-02-26 10:31 | PN ---
PROGRESS NOTE DATE OF SERVICE: 02/25/2018 SUBJECTIVE: Mrs. Pearson is a pleasant 73-year-old, female, who is being evaluated today on 02/25/2018 by the neurology service for a seizure. As you recall, the patient was admitted to [facility] for a single episode of generalized tonic seizure. The patient did not have any previous history of seizures and has not had any further episodes since her admission. She was on Ultram at home and this was discontinued. She does have history of chronic low back pain. Her EEG from yesterday was normal. Her MRI of the brain showed multiple white matter lesions. Over 25 lesions were counted. Both the patient and her deny any symptoms concerning for any demyelinating disease over the years. Her CBC was normal today. Her basic metabolic profile was normal except for mild hyponatremia at 134. The patient denies any neurological complaints at this time. PAST MEDICAL HISTORY: Hypertension, anxiety disorder, chronic pain syndrome. OBJECTIVE: Vital signs show a temperature of 98.8, pulse 88, respiration 18, blood pressure 139/79. GENERAL APPEARANCE: The patient is a well-developed female who appears to be in no acute distress. HEENT: Normocephalic, atraumatic, no facial asymmetry is seen. Extraocular muscles are intact. Neck is supple with no masses felt. CARDIOVASCULAR: Regular rate and rhythm. ABDOMEN: Nontender, nondistended. Extremities showed no edema or clubbing. NEUROLOGICAL EXAM: The patient is awake and oriented x3. Speech and language are normal. No lateralizing weakness is seen. No facial asymmetry is noticed on cranial nerve testing. No tremors or seizure-like activity is seen. IMPRESSION: 1. Generalized tonic seizure, single episode. 2. Hypertension. 3. Anxiety disorder. 4. Chronic pain syndrome. RECOMMENDATION: The patient continues to be stable at this time from a neurology standpoint. She has not had any further seizure-like episode. The patient was on Ultram at home and she did take the medication more than prescribed on the day that the seizure episode occurred. Ultram has been discontinued. Her MRI of the brain was reviewed and it showed multiple white matter lesions. I do recommend a repeat MRI of the brain in 3 to 4 months. The patient and her state that they [place] out of town and they will follow up with a local neurologist closer to their home. The patient was told that she is not to drive or operate any heavy machinery for a periods of 6 months of being seizure-free. No further inpatient neurological workup is needed at this time. From a neurology standpoint, the patient is cleared for discharge. FABIEN / RADHAN: [id number] /
== END 2018-02-25 15:27 | disposition home or self-care (01) | DRG 281 ==
LOC: EC 18:12 → 6ICU 20:49 → INTOOBSV 20:49 → 6ICU 21:47 → OBSVTOIN 02-23 09:28 → 6SEL 02-23 11:28
PROVIDERS: ADMIT Hospitalist; ATTEND Hospitalist
PROC: B2111ZZ Fluoroscopy of Multiple Coronary Arteries using Low Osmolar Contrast (ICD-10-PCS; 2018-02-24)
PROC: B2151ZZ Fluoroscopy of Left Heart using Low Osmolar Contrast (ICD-10-PCS; 2018-02-24)
PROC: 4A023N7 Measurement of Cardiac Sampling and Pressure, Left Heart, Percutaneous Approach (ICD-10-PCS; principal; 2018-02-24 09:35)
DX: I51.81 Takotsubo syndrome (principal); I21.4 Non-ST elevation (NSTEMI) myocardial infarction; E87.1 Hypo-osmolality and hyponatremia; E78.00 Pure hypercholesterolemia, unspecified; F41.9 Anxiety disorder, unspecified; G89.4 Chronic pain syndrome; G40.409 Other generalized epilepsy and epileptic syndromes, not intractable, without status epilepticus; T40.4X5A Adverse effect of other synthetic narcotics, initial encounter; K59.09 Other constipation; M54.5 Low back pain; M19.90 Unspecified osteoarthritis, unspecified site; M47.9 Spondylosis, unspecified; Z79.899 Other long term (current) drug therapy; Z90.710 Acquired absence of both cervix and uterus; Z87.891 Personal history of nicotine dependence; Y92.009 Unspecified place in unspecified non-institutional (private) residence as the place of occurrence of the external cause
CPT/HCPCS: 36415; 70450; 70496; 70553; 71046; 80048; 80053; 80061; 82550; 82553; 83735; 84484; 85025; 85610; 85730; 93005; 93306; 93458; 95819; 96374; 99285